=== PATIENT | male | born 1990 | race Caucasian/White ===

== ENCOUNTER 2020-05-15 21:19 | Emergency (ER) | payer OTHER ==
[~2020-05-15] VITALS: Ht 175.3 cm; Wt 79.4 kg
[2020-05-15 21:23] VITALS: Ht 175.3 cm; Wt 79.4 kg
[2020-05-15 22:20] VITALS: BP 150/97
== END 2020-05-15 22:20 | disposition home or self-care (01) ==
LOC: ED 21:19
DX: S93.402A Sprain of unspecified ligament of left ankle, initial encounter (principal); Z88.1 Allergy status to other antibiotic agents; X50.1XXA Overexertion from prolonged static or awkward postures, initial encounter; Y93.89 Activity, other specified; Y92.89 Other specified places as the place of occurrence of the external cause; Y99.8 Other external cause status
CPT/HCPCS: Q0092